=== PATIENT | male | born 1965 | race African-American/Black ===

== ENCOUNTER 2025-03-12 13:10 | Outpatient (AMB) | payer OTHER, SELFPAY ==
--- NOTE | 2025-03-12 13:12 | MHC.OFFWIV ---
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 No postictal state. no focal weakness he notes that he has been having intermittent chest pain lately. No chest pain today he takes multiple medications for hypertension. He denies any other cardiac disease no recent illnesses PFSH Social History Patient Tobacco Use Status: Never used Tobacco Review of Systems Const Denies chills, Denies fatigue, Denies fever(s), Denies headache(s) and Denies weakness ENT Denies dizziness and Denies headache(s) Card Details: no current chest pain but has had some chest pain recently, intermittently. Also palpitations though no current palpitations today. Denies chest pain, Denies lightheadedness, Denies dyspnea and Denies other (Palpitations) Resp Denies cough, Denies dyspnea, Denies wheezing and Denies other ( shortness of breath) Musc Denies numbness and Denies tingling Neuro Denies dizziness, Denies headache(s), Denies numbness, Denies tingling, Denies paresthesias and Denies weakness Psych Denies anxiety and Denies depression Endo Denies fatigue Aller/Immun Denies wheezing Physical Exam Vital Signs: Last Vital Signs Temp 98.0 F 03/12/25 13:13 Pulse 69 03/12/25 13:13 Resp 16 03/12/25 13:13 BP 110/60 03/12/25 13:13 Pulse Ox 98 03/12/25 13:13 Oxygen Delivery Method Room Air 03/12/25 13:13 BMI result Body Mass Index 28.9 Const General: no acute distress and well developed Nutritional Appearance: well nourished Orientation/consciousness: patient oriented x3 HEENT Head: Yes normocephalic and Yes atraumatic Eyes General: appearance normal, both eyes and all related structures Pupils: Equal, round and reactive pupils present EOM: EOMs intact bilaterally Resp Effort & Inspection: normal respiratory effort Auscultation: clear to auscultation bilaterally Cardio Rate: regular rate Rhythm: regular rhythm Heart sounds: S1 normal heart sound present, S2 normal heart sound present, no gallops, no murmurs and no rubs Neuro General: patient oriented x3 and gait normal Cranial nerves: Yes Equal, round and reactive pupils present Psych Affect: normal affect Assessment & Plan Assessment & Plan (1) Syncope: Code(s): R55 - Syncope and collapse Plan: 59-year-old male with a history of hypertension, had episode of syncope x 1 yesterday. blood sugar was 88 blood pressure was 176/86 orthostatic blood pressures are positive EKG shows lateral ischemia. patient notes palpitations prior to lost consciousness and also he has had intermittent chest pain lately referred patient to emergency department. No current chest pain his will drive him Orders: Orders Complete Blood Count Auto Diff Today R55 - Syncope and collapse, Z00.00 - Encounter for general adult medical examination without abnormal findings Comprehensive Met. Panel Today R55 - Syncope and collapse Troponin-I High Sensitivity Today R55 - Syncope and collapse Magnesium Today R55 - Syncope and collapse TSH reflex Free T4 Today R55 - Syncope and collapse, Z00.00 - Encounter for general adult medical examination without abnormal findings Coding Level of Care Code New Pt Level 4 (50151) Diagnoses Syncope R55
--- OUTSIDE RECORDS SUMMARY | 2025-03-12 13:12 | XMS_ITS | Data Portability ---
Author Organization MANPRE[facility] Yuri Razo [facility], [facility] Address [address] [place] [address] Assessment Encounter Date Assessment Date Assessment LastModified by Organization Details LastModified Time 08/26/2023 08/26/2023 Reviewed patient's imaging and exam findings in detail with him. Discussed that he has great rotator cuff strength overall. He does have irritability at the A/C joint and severe osteoarthritis and arthritic changes on his os acromiale junction site. Reviewed that I would recommend a subacromial cortisone injection accompanied by physical therapy for treatment of his bursitis related symptoms. Did however review with him that the numbness and tingling and radicular symptoms extending into his fingers are likely cervical in nature. Diagnostic and therapeutic injection would help us to better localize what pain is coming from where. Discussed that he may need further cervical workup in the future. Follow-up in 8 weeks to see how injection and therapy worked for him. All questions and concerns were addressed and answered. alonzo Not available 08/26/2023 15:09:28 Plan of Treatment Reminders Order Date Submit Date Provider Last Modified By Organization Details Last Modified Time Details Appointments None recorded. Lab None recorded. Referral physical therapist referral - PHYSICAL THERAPY REFERRAL ICD-10: M75.41(ri ght) M75.42(le ft) RTC TENDINITI S,IMPINGE MENT 1. Rotator cuff strengthe blanquita program. 2. Scapular stabiliza tion program including strengthe blanquita, mobilizat ion, and proprioce ption. 3. Soft tissue modalitie s as indicated . 4. Home exercise program. 5. Therapeut ic exercises : all exercises prn per therapist . 6. Manual therapy: all manual therapy prn per therapist . Allow 2-3 visits a week for 6-8 weeks. Completed by: 2023 024 joanne Not available 10:55:19 physical therapist referral - ICD-10: M75.41(ri ght) M75.42(le ft) 1. Rotator cuff strengthe blanquita program. 2. Scapular stabiliza tion program including strengthe blanquita, mobilizat ion, and proprioce ption. 3. End stage range stretchin g 4. Soft tissue modalitie s as indicated . 5. Home exercise program. 6. Therapeut ic exercises : all exercises prn per therapist . 7. Manual therapy: all manual therapy prn per therapist . 2023 024 alonzo Not available 16:12:54 Procedures None recorded. Surgeries None recorded. Imaging XR, cervical spine, 1 view - ROOM 215, shoulder pain, numbness & tingling down the arm 2023 024 alonzo [facility], [address], [place], [address], 4 16:12:54 XR, shoulder, 2 or more view - ROOM 215, Right Shoulder pain 2023 024 alonzo [facility], [address], [place], [address], 4 16:12:54 Medication Orders None recorded. Patient TargetsNo targets recorded. Patient Instructions Encounter Date Encounter Id Patient Instructions Last Modified By Organization Details Last Modified Time 08/26/2023 [id number] You have been provided with a cortisone injection in order to reduce the pain and inflammation that you are experiencing. The injection consists of two medications. Cortisone (an anti-inflammatory that will take 48-72 hours to take effect) and Lidocaine (a numbing agent that will last 2-3 hours). Please note that not everyone will have a lasting response following the injection. PATIENT INSTRUCTIONS Once the Lidocaine wears off, you may have an increase in your pain. I recommend icing the affected area for 20 minutes 3-4 times per day. It is recommended that you refrain from any high level activities using the joint or limb that was injected for approximately 24-48 hours. Normal day-to-day activities are generally not a problem. POSSIBLE SIDE EFFECTS Individuals with dark complexions may experience some skin discoloration locally at the site of the injection. There is the possibility of an increase in discomfort within 48 hours following the injection. This is called moshe kimble . To help minimize the chances of this, please see the post-injection instructions above. There is a less than 1% chance of an infection. If you notice any signs of infection (redness, warmth, drainage, fever greater than 100 degrees) please call our office or contact us through the portal ELIEZERVal rosado Not available 08/26/2023 15:09:31 Reason for Referral Physical Therapist Referral for Pain of right shoulder joint ICD-10: M75.41(right) M75.42(left)1. Rotator cuff strengthening program.2. Scapular stabilization program including strengthening, mobilization, and proprioception.3. End stage range stretching4. Soft tissue modalities as indicated.5. Home exercise program.6. Therapeutic exercises: all exercises prn per therapist.7. Manual therapy: all manual therapy prn per therapist. Referring Physician: Anna Lynch, Orthopedic Surgery, [id number] Encounter Date: 08/26/2023 Physical Therapist Referral for Impingement syndrome of right shoulder region PHYSICAL THERAPY REFERRAL ICD-10: M75.41(right) M75.42(left) RTC TENDINITIS,IMPINGEMENT1. Rotator cuff strengthening program.2. Scapular stabilization program including strengthening, mobilization, and proprioception.3. Soft tissue modalities as indicated.4. Home exercise program.5. Therapeutic exercises: all exercises prn per therapist.6. Manual therapy: all manual therapy prn per therapist.Allow 2-3 visits a week for 6-8 weeks.Completed by: Referring Physician: Lizzie Soni, Orthopedic Surgery, Encounter Date: 01/16/2024 Procedures Surgical History Date Name Laterality Status Provider Name and Address Organization Details Recorded Time Sports Shoulder completed Lizzie Soni, [facility] [address], [place], [address], [facility] 07/15/2024 07:51:20 4 Sports Shoulder completed Lizzie Soni, [facility] [address], [place], [address], [facility] 01/16/2024 12:34:18 4 Sports Shoulder completed Anna Lynch PA-C [address], [place], [address], [facility] 08/26/2023 13:35:56 Imaging Results None recorded. Procedure Notes None recorded. Medical Equipment None Reported. Allergies No known drug allergies Medications Name Sig Start Date Stop Date Status Note LastModified by Organization Details LastModified Time cyclobenzap rine 10 mg tablet TAKE 1 TABLET BY MOUTH THREE TIMES A DAY FOR 10 DAYS NEEDED FOR SPASM 01/09 completed Not Available Not Available Not Available atorvastati n 40 mg tablet TAKE 1 TABLET BY MOUTH EVERY DAY active Not Available Not Available No t Available carvedilol 12.5 mg tablet TAKE 1 TABLET BY MOUTH TWICE A DAY active Not Available Not Available No t Available ibuprofen 800 mg tablet TAKE 1 TABLET BY MOUTH 3 TIMES A DAY FOR 5 DAYS active Not Available Not Available No t Available meloxicam 15 mg tablet TAKE 1 TABLET BY MOUTH EVERY DAY 01/09 completed Not Available Not Available Not Available amlodipine 10 mg tablet TAKE 1 TABLET BY MOUTH EVERY DAY active Not Available Not Available No t Available metformin 1,000 mg tablet TAKE 1 TABLET BY MOUTH TWICE A DAY active Not Available Not Available No t Available celecoxib 100 mg capsule TAKE 1 CAPSULE BY MOUTH TWICE A DAY 01/09 completed Not Available Not Available Not Available metformin ER 500 mg tablet,exte nded release 24 hr TAKE 1 TABLET BY MOUTH TWICE A DAY WITH FOOD active Not Available Not Available No t Available naproxen 500 mg tablet TAKE 1 TABLET BY MOUTH TWICE A DAY NEEDED FOR MODERATE PAIN active Not Available Not Available No t Available valsartan 160 mg tablet TAKE 1 TABLET BY MOUTH EVERY DAY active Not Available Not Available No t Available cyclobenzap rine 5 mg tablet TAKE 1 TABLET BY MOUTH 3 TIMES A DAY,X14 DAYS NEEDED FOR SPASM 01/09 completed Not Available Not Available Not Available hydrochloro thiazide 12.5 mg tablet TAKE 1 TABLET BY MOUTH EVERY DAY active Not Available Not Available No t Available diclofenac 1 % topical gel APPLY 1 APPLICATI ON TOPICALLY 4 TIMES A DAY,X7 DAYS active Not Available Not Available No t Available Vitals Date Recorded Body height Body mass index (BMI) Body weight Provider Name and Address Organization Details Last Updated DateTime 07/15/2024 182.88 cm 30 kg/m2 746573.91 g LOPEZ ASH [facility] 07/15/2024 10:11:23 Date Recorded Body height Body mass index (BMI) Body weight Provider Name and Address Organization Details Last Updated DateTime 08/26/2023 182.88 cm 30 kg/m2 573885.91 g Ariana Neuamnn [facility] 08/26/2023 13:10:00 Date Recorded Body height Body mass index (BMI) Body weight Provider Name and Address Organization Details Last Updated DateTime 01/16/2024 182.88 cm 30 kg/m2 800244.91 g ELBA WILLIAM [facility] 01/16/2024 08:59:30 Social History None recorded. Functional Status None recorded. Mental Status None recorded. Family History Nothing Reported. Medical History Condition Response Allergies/Hayfever N Coronary Artery Disease N Anxiety/Depression N Breathing or lung disorders N Emphysema N Nerve Disorders N Thyroid Problems N COPD N Pacemaker N Anemia N Kidney/Bladder Problems N Vascular Disease N Heart Trouble N Heart Attack ([place]) N Gastrointestinal Disease N Cholesterol Y Diabetes Y Autoimmune disease N Inflammatory Joint disease N Bleeding Disorder N Orthotics N Arthritis N Seizures/Epilepsy N Blood Clot N AIDS/HIV N Congestive Heart Failure (CHF) N Acid Reflux (GERD) N Cancer N Stroke N Asthma N Circulation Problems N Peripheral Vascular Disease N Sleep Apnea N Hepatitis N Heart Disease N Rheumatoid Arthritis N Arrhythmia N Pulmonary Embolism N Headaches N Fibromyalgia N Hypertension Y Osteoporosis N Past Encounters Encounter ID Performer Location Encounter Start Date Encounter Closed Date Diagnosis/Indication Diagnosis SNOMED-CT Code Diagnosis ICD10 Code Diagnosis IMO Codes Diagnosis Note [id number] MACIEL Gunter [address] [place] [address] 08/26/2023 12:54:23 09/17/2023 10:15:09 Pain of right shoulder joint 3506551502 6260386 M25.511 Osteoarthr itis of joint of right shoulder region 7671854276 80311 M19.011 Impingemen t syndrome of right shoulder region 0219408669 76526 M75.41 Cervical radiculopathy 91140170 M54.12 [id number] Lizzie Soni, ASHLYN [address] [place] [address] 01/16/2024 08:46:44 01/28/2024 10:55:19 Impingement syndrome of right shoulder region 2212021089 19435 M75.41 [id number] Lizzie Soni, ASHLYN [facility] [address] [place] [address] 07/15/2024 09:45:26 08/03/2024 15:44:52 Health Concerns Section Related Observation LastModified by Organization Detai ls LastModified Time None Recorded Concern Status LastModified by Organization Details LastModified Time None Recorded Advance Directives Directive None Recorded Payers Insurance Date Sequence Insurance Name Policy Number Policy Harvey Covered Member ID Harvey Member ID Guarantor Name 08/03/[address] [place] [address] [id number] Juan Manuel Maher [id number] Juan Manuel Maher Notes Date Note Type Note Provider Name and Address Organization Details Recorded Time 08/26/2023 text/html ROS as noted in the HPI I am seeing the patient under the general supervision of Dr. Dudley who was available but who did not see the patient. Patient is a 58 year old male who presents today with chief complaint of right shoulder pain. Pain started in june. Does recall that he did have a fall at one point but thinks it may have been unrelated. Pain starts on the top of the shoulder and goes into the hand. Describes a shooting sharp pain with numbness and tingling into the hand. Has tried meloxicam and celebrex and finds the celebrex more helpful than meloxicam but still has not resolved his pain. 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 DIAGNOSTIC IMAGIN view right shoulder radiographs were ordered, obtained and independently reviewed by myself during today's visit at [facility] and demonstrate well-preserved glenohumeral joint space. Advanced AC joint space narrowing with osteophyte formation and subacromial spurring. Os acromiale noted with osteoarthritis and surrounding osteophytosis at the junction site. Type II-III acromion noted on outlet view Lateral cervical spine film demonstrates diffuse degenerative disc disease with severe disc space narrowing and osteophyte formation noted at C4-C7 Anna Lynch PA-C [address], [place], [address], [facility] 08/26/2023 15:10:14 01/16/2024 text/html ROS as noted in the HPI I am seeing the patient under the general supervision of Dr. Barr who was available but who did not see the patient. Patient is a 58 year old male who presents today for follow-up right subacromial impingement and AC joint arthrosis. He has had previous cortisone injection with limited relief. He has known severe degenerative changes through the C-spine at C4-C6. He has also tried meloxicam Lizzie Soni, [facility] [address], [place], [address], [facility] 01/16/2024 12:34:37 07/15/2024 text/html ROS as noted in the HPI I am seeing the patient under the general supervision of Dr. Barr who was available but who did not see the patient. Patient is a 58 year old male who presents today for follow-up right subacromial impingement and AC joint arthrosis. He has had previous cortisone injection with limited relief. He has known severe degenerative changes through the C-spine at C4-C6. He did fall off a ladder about a month ago sustained a rib fracture. He did have radiographs at [facility] which were negative for fracture Lizzie Soni, [facility] [address], [place], [address], [facility] 07/15/2024 13:10:33
[2025-03-12 13:13] VITALS: BP 110/60; PULSE 69; RESP 16; TEMP 36.7; O2SAT 98; BMI 28.9
== END 2025-03-12 14:26 | disposition home or self-care (01) ==
LOC: HO.HMCWIC 13:10
PROVIDERS: PCP Internal Medicine; Visit Provider Family Medicine
DX: R55 Syncope and collapse (principal)